=== PATIENT | female | born 1965 | race African-American/Black ===

== ENCOUNTER 2018-05-07 08:00 | Outpatient (CLI) | payer MEDICAID | END 2018-05-07 09:00 | disposition home or self-care (01) | LOC: D.MAMMO 08:00 | DX: Z12.39 Encounter for other screening for malignant neoplasm of breast (principal) ==

== ENCOUNTER 2019-06-02 13:30 | Outpatient (CLI) | payer MEDICAID | END 2019-06-02 14:00 | disposition home or self-care (01) | LOC: D.MAMMO 13:30 | PROVIDERS: ATTEND Nurse Practitioner Women's Health | DX: Z12.31 Encounter for screening mammogram for malignant neoplasm of breast (principal) ==